=== PATIENT | female | born 1995 | race Caucasian/White ===

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

== ENCOUNTER 2018-10-24 02:13 | Outpatient (CLI) | payer MEDICAID ==
[2018-10-24 03:00] LABS: APPEARANCE,URINE CLOUDY; BILIRUBIN,URINE NEGATIVE (NEGATIVE); COLOR,URINE YELLOW; GLUCOSE, URINE NEGATIVE (NEGATIVE); KETONES,URINE NEGATIVE (NEGATIVE); LEUKOCYTE ESTERASE,URINE LARGE (NEGATIVE); NITRITE,URINE NEGATIVE (NEGATIVE); PROTEIN,URINE NEGATIVE (NEGATIVE); URINE SPECIFIC GRAVITY 1.019
[2018-10-24 03:26] LABS: URINE AMPHETAMINES SCREEN NEGATIVE; URINE BARBITURATES SCREEN NEGATIVE; URINE BENZODIAZEPINES SCREEN NEGATIVE; URINE COCAINE SCREEN NEGATIVE; URINE MARIJUANA (THC) SCREEN NEGATIVE; URINE METHADONE SCREEN NEGATIVE; URINE PHENCYCLIDINE SCREEN NEGATIVE
--- NOTE | 2018-10-24 05:17 | RADIOLOGY REPORT (SQ) ---
EXAM DESCRIPTION: US LIMITED COMPLETED DATE/TME: 10/24/2018 00:00 CLINICAL HISTORY: 23 years Female, Transvaginal cervical length 29w5d Comparison: None. TECHNIQUE/LIMITATION: Targeted OB sonogram for requested parameters only. FINDINGS: Single IUP Cardiac activity: 152-bpm. IGNACIO: 11.8-cm Placenta: Posterior.. No demonstrated abruption or previa. Presentation: Vertex. Cervical length: 3.5-cm. Closed appearance. IMPRESSION: Targeted OB sonogram for requested parameters
[2018-10-24 05:41] LABS: BACTERIA (WET MOUNT) 3+ BACTERIA SEEN; EPITHELIALS (WET MOUNT) 3+ EPITHELIALS SEEN; RBCS (WET MOUNT) FEW RBCS SEEN; T.VAGINALIS (WET MOUNT) TRICHOMONAS SEEN; WBCS (WET MOUNT) 2+ WBCS SEEN; YEAST (WET MOUNT) NO YEAST SEEN
[2018-10-24] MEDS ORDERED: METRONIDAZOLE 500 MG TABLET PO ONE (06:31)
[2018-10-24] MEDS ORDERED: METRONIDAZOLE 500 MG TABLET ONE (06:32)
[2018-10-24 07:12] LABS: CHLAM PCR NOT DETECTED (NOT DETECT)
== END 2018-10-24 07:33 | disposition home or self-care (01) ==
LOC: LC 02:13
PROVIDERS: ATTEND Student in an Organized Health Care Education/Training Program
PROC: 4A1HXCZ Monitoring of Products of Conception, Cardiac Rate, External Approach (ICD-10-PCS; principal; 2018-10-24)
DX: O23.593 Infection of other part of genital tract in pregnancy, third trimester (principal); B96.89 Other specified bacterial agents as the cause of diseases classified elsewhere; Z3A.29 29 weeks gestation of pregnancy
CPT/HCPCS: 59899; 76815; 87210; 81001; 80307; 87491; 87591; J3490

== ENCOUNTER 2018-11-02 10:47 | Outpatient (CLI) | payer MEDICAID ==
[2018-11-02 11:35] LABS: APPEARANCE,URINE CLEAR; BILIRUBIN,URINE NEGATIVE (NEGATIVE); COLOR,URINE YELLOW; GLUCOSE, URINE NEGATIVE (NEGATIVE); KETONES,URINE TRACE mg/dL (NEGATIVE); LEUKOCYTE ESTERASE,URINE SMALL (NEGATIVE); NITRITE,URINE NEGATIVE (NEGATIVE); PROTEIN,URINE NEGATIVE (NEGATIVE); URINE SPECIFIC GRAVITY 1.009; UROBILINOGEN,URINE NEGATIVE mg/dL (<2.0)
[2018-11-02 11:53] LABS: URINE AMPHETAMINES SCREEN NEGATIVE; URINE BARBITURATES SCREEN NEGATIVE; URINE BENZODIAZEPINES SCREEN NEGATIVE; URINE COCAINE SCREEN NEGATIVE; URINE MARIJUANA (THC) SCREEN NEGATIVE; URINE METHADONE SCREEN NEGATIVE; URINE PHENCYCLIDINE SCREEN NEGATIVE
[2018-11-02 12:32] LABS: BACTERIA (WET MOUNT) 4+ BACTERIA SEEN; EPITHELIALS (WET MOUNT) 4+ EPITHELIALS SEEN; T.VAGINALIS (WET MOUNT) NO TRICHOMONAS SEEN; WBCS (WET MOUNT) 1+ WBCS SEEN; YEAST (WET MOUNT) NO YEAST SEEN
--- NOTE | 2018-11-02 13:48 | RADIOLOGY REPORT (SQ) ---
EXAM DESCRIPTION: U/S OB LIMITED COMPLETED DATE/TIME: 11/02/2018 1:18 pm REASON FOR STUDY: cervical length, position, fluid, cramping 31wks COMPARISON: None. TECHNIQUE: Limited transabdominal grayscale ultrasound for evaluation of specific requested obstetri dariel parameters. LIMITATIONS: None. FINDINGS: CERVICAL LENGTH: 3.9 cm Closed. IGNACIO: 15.8 cm. FHR: 145 beats per minute. PRESENTATION: Vertex. PLACENTA: Posterior. No evidence of placenta previa or abruption. ANATOMY: Not assessed OTHER: No other findings. IMPRESSION: LIMITED OBSTETRICAL ULTRASOUND WITH MEASURED PARAMETERS DELINEATED ABOVE. Trimester of : Third trimester - 28 weeks to delivery. TECHNICAL DOCUMENTATION: JOB ID: [id number] [employer]- All Rights Reserved Reading location - IP/workstation name: [email or web address]
[2018-11-02 13:56] LABS: CHLAM PCR NOT DETECTED (NOT DETECT)
== END 2018-11-02 14:14 | disposition home or self-care (01) ==
LOC: LC 10:47
PROVIDERS: ATTEND Student in an Organized Health Care Education/Training Program
DX: O47.03 False labor before 37 completed weeks of gestation, third trimester (principal); Z3A.30 30 weeks gestation of pregnancy
CPT/HCPCS: 76815; 80307; 81001; 87210; 87491; 87591

== ENCOUNTER 2018-12-13 11:37 | Outpatient (CLI) | payer BC, MEDICAID ==
[2018-12-13 12:30] LABS: APPEARANCE,URINE CLEAR; BILIRUBIN,URINE NEGATIVE (NEGATIVE); COLOR,URINE STRAW; GLUCOSE, URINE NEGATIVE (NEGATIVE); KETONES,URINE NEGATIVE (NEGATIVE); LEUKOCYTE ESTERASE,URINE LARGE (NEGATIVE); NITRITE,URINE NEGATIVE (NEGATIVE); PROTEIN,URINE NEGATIVE (NEGATIVE); URINE SPECIFIC GRAVITY 1.002; UROBILINOGEN,URINE NEGATIVE mg/dL (<2.0)
[2018-12-13 13:10] LABS: URINE BARBITURATES SCREEN NEGATIVE; URINE BENZODIAZEPINES SCREEN NEGATIVE; URINE COCAINE SCREEN NEGATIVE; URINE MARIJUANA (THC) SCREEN NEGATIVE; URINE METHADONE SCREEN NEGATIVE
--- NOTE | 2018-12-13 13:14 | Non Stress Test Report ---
Non Stress Test Datetime Report Generated by CPN: 12/13/2018 13:13 DEMOGRAPHIC EGA NST: 36.6 INDICATION Indication for Study: Other - Please document "Reason for NST Other" in box below. Indication for Study (NST) Other: Abdominal pain MONITORING Monitor Explained: Monitor Explained; Test Explained; Patient Verbalized Understanding Time on Monitor: 12/13/2018 11:58 Time off Monitor: 12/13/2018 13:00 NST Duration: 62 NST INTERVENTIONS NST Interventions: None Physician Notified NST: A Garcia CNM BABY A: [id number] BABY A Movement : Present Contraction Frequency : none FHR Baseline : 150 Accelerations : 15X15 Decelerations : None Variability : Moderate 6-25bpm NST Review: Meets Criteria for Reactive NST NST Review and Verified By : Juan Miguel ChavezStilwell RN NST Results: Reactive NST COMMENTS NST Comments: CNM on unit reviewing FHT strip NST REPORT Report Trigger: Send Report
[2018-12-13 13:15] LABS: BACTERIA (WET MOUNT) 4+ BACTERIA SEEN; EPITHELIALS (WET MOUNT) 4+ EPITHELIALS SEEN; RBCS (WET MOUNT) 1+ RBCS SEEN; T.VAGINALIS (WET MOUNT) NO TRICHOMONAS SEEN; WBCS (WET MOUNT) 3+ WBCS SEEN; YEAST (WET MOUNT) NO YEAST SEEN
[2018-12-13 13:36] LABS: URINE AMPHETAMINES SCREEN NEGATIVE; URINE PHENCYCLIDINE SCREEN NEGATIVE
[2018-12-13 14:23] LABS: CHLAM PCR NOT DETECTED (NOT DETECT)
== END 2018-12-13 13:16 | disposition home or self-care (01) ==
LOC: LC 11:37
PROVIDERS: ATTEND Obstetrics & Gynecology
PROC: 4A1HXCZ Monitoring of Products of Conception, Cardiac Rate, External Approach (ICD-10-PCS; principal; 2018-12-13)
DX: O26.893 Other specified pregnancy related conditions, third trimester (principal); R10.9 Unspecified abdominal pain; Z3A.36 36 weeks gestation of pregnancy
CPT/HCPCS: 59025; 80307; 81005; 87210; 87491; 87591

== ENCOUNTER 2018-12-15 11:24 | Outpatient (CLI) | payer BC, MEDICAID ==
--- NOTE | 2018-12-15 13:14 | Non Stress Test Report ---
Non Stress Test Datetime Report Generated by CPN: 12/15/2018 13:14 DEMOGRAPHIC EGA NST: 37.1 INDICATION Indication for Study: Ordered by Provider MONITORING Time on Monitor: 12/15/2018 11:34 Time off Monitor: 12/15/2018 12:40 NST Duration: 66 NST INTERVENTIONS NST Interventions: PO Hydration; Reposition Patient Physician Notified NST: Dr Parks BABY A: [id number] BABY A Movement : Present Contraction Frequency : 0 FHR Baseline : 140 Accelerations : 15X15 Decelerations : None Variability : Moderate 6-25bpm NST Review: Meets Criteria for Reactive NST NST Review and Verified By : Yanet Camp RNC NST Results: Reactive NST REPORT Report Trigger: Send Report
== END 2018-12-15 12:50 | disposition home or self-care (01) ==
LOC: LC 11:24
PROVIDERS: ATTEND Student in an Organized Health Care Education/Training Program
PROC: 4A1HXCZ Monitoring of Products of Conception, Cardiac Rate, External Approach (ICD-10-PCS; principal; 2018-12-15)
DX: Z34.03 Encounter for supervision of normal first pregnancy, third trimester (principal)
CPT/HCPCS: 59025

== ENCOUNTER 2019-01-02 14:27 | Inpatient (IN) | payer BC, MEDICAID ==
[2019-01-02] MEDS ORDERED: OXYTOCIN/NORMAL SALINE 20 UNIT/1,000 ML RTUINJ ONE (14:30)
[2019-01-02] MEDS ORDERED: LIDOCAINE 1% INJ-PF (10 MG/ML) 30 ML SDV ONE (14:30)
[2019-01-02] MEDS ORDERED: MISOPROSTOL 0.2 MG TABLET ONE (14:30)
[2019-01-02] MEDS ORDERED: OXYTOCIN 10 UNIT/ML VIAL ONE (14:30)
[2019-01-02] MEDS ORDERED: RINGERS SOLUTION,LACTATED 1,000 ML IV ONE (15:21)
[2019-01-02] MEDS ORDERED: PENICILLIN G POTASSIUM 5,000,000 UNIT in DEXTROSE 5%-WATER 100 ML IV ONE (15:21)
[2019-01-02] MEDS ORDERED: RINGERS SOLUTION,LACTATED 1,000 ML IV PRN (15:21)
[2019-01-02 15:23] LABS: ABSOLUTE EOSINOPHILS # (AUTO) 0.1 10^3/uL (0.0-0.6); ABSOLUTE LYMPHOCYTES (AUTO) 2.1 10^3/uL (0.5-4.7); ABSOLUTE MONOCYTES (AUTO) 0.7 10^3/uL (0.1-1.4); ABSOLUTE NEUT (AUTO) 8.7 10^3/uL (1.7-8.2); BASOPHILS % (AUTO) 0.2 % (0-2); EOSINOPHILS % (AUTO) 0.5 % (0-6); HEMATOCRIT 30.9 % (36.0-47.0); LYMPHOCYTES % (AUTO) 18.2 % (13-45); MEAN CORPUSCULAR HEMOGLOBIN 24.3 pg (27.0-33.4); MEAN CORPUSCULAR HGB CONC 32.4 g/dL (32.0-36.0); MEAN CORPUSCULAR VOLUME 75 fl (80-97); PLATELET COUNT 250 10^3/uL (150-450); RED BLOOD COUNT 4.13 10^6/uL (3.72-5.28); RED CELL DISTRIBUTION WIDTH 16.2 % (11.5-14.0); SEGMENTED NEUTROPHILS % (AUTO) 75.1 % (42-78); TOTAL CELLS COUNTED % (AUTO) 100 %; WHITE BLOOD COUNT 11.6 10^3/uL (4.0-10.5)
[2019-01-02] MEDS ORDERED: OXYTOCIN/NORMAL SALINE 20 UNIT/1,000 ML RTUINJ IV PRN (15:40)
--- NOTE | 2019-01-02 16:37 | Admission Physical ---
Datetime Report Generated by CPN: 01/02/2019 16:37 CURRENT ADMISSION Chief Complaint: Other Chief Complaint Other: gross rupture of membranes-moderate meconium at 1355 Indication for Induction: Not Applicable Indication for Induction- Other: may need augmentation Admit Impression : Term, Intrauterine Admit Impression- Other: early labor Admit Plan: Admit to Unit; Initiate Labor Protocol ALLERGIES Medication Allergies: No Medication Allergies: No Known Allergies (01/02/2019) Latex: Latex Allergies Food Allergies: None Environmental Allergies: Yes OBSTETRICAL HISTORY EDC: 01/04/2019 00:00 : 1 Para: 0 Term: 0 : 0 SAB: 0 IAB: 0 Ectopic: 0 Livin Cesareans: 0 VBACs: 0 Multiple Births: 0 Gestational Diabetes: Yes Rh Sensitization: No Incompetent Cervix: Yes ANDRE: No Infertility: No ART Treatment: No Uterine Anomaly: No IUGR: No Hx Previous C/S: No Macrosomia: No Hx Loss/Stillborn: No PIH: No Hx : No Placenta Previa/Abruption: No Depression/PP Depression: No PTL/PROM: No Post Hemorrhage: No Current Procedures: Ultrasound; NST Obstetrical History Comments: G1 - short cervix, GDM- glyburide SEE RECORDS Alcohol: No Marijuana : No Cocaine: No Other Illicit Drugs: No Cigarettes: Light Tobacco Smoker. 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 Heart Disease: No Hosp/Surgery: Yes Autoimmune Disorder: No Anesthetic Complications: No Kidney Disease: No Abnormal Pap Smear: No Neuro/Epilepsy: No Psychiatric Disorders: Yes Other Medical Diseases: No Hepatitis/Liver Disease: No Significant Family History: No Varicosities/Phlebitis: No Trauma/Violence : No Thyroid Dysfunction: Yes Medical History Comments: Anxiety, Asthma, obesity, GDM- glyburide, Hyperthyroid- levothyroxide Addenectomy and wisdome tooth removal- denies complications with anesthesia INFECTIOUS HISTORY Gonorrhea: No Genital Herpes: No Chlamydia: Yes Tuberculosis: No Syphilis: No Hepatitis: No HIV/AIDS Exposure: No Rash or Viral Illness: No HPV: No Infectious History Comments: + Chlamydia, Negative JOVANI, + Trich JOVANI- 9/11, + E. Coli PHYSICAL EXAM General: Normal HEENT: Normal Neurologic: Normal Thyroid: Deferred Heart: Normal Lungs: Normal Breast: Deferred Back: Normal Abdomen: Normal Genitourinary Exam: Normal Extremities: Normal DTRs: Normal Pelvic Type: Not Done Vital Signs: Reviewed VAGINAL EXAM Dilatation: 1 Effacement: c Station: -1 Contraction Comments: q2-4 mins MEMBRANES Pooling: Positive Membranes: Ruptured Amniotic Fluid Color: Meconium, Light FETUS A EGA: 39.5 Monitoring: External US FHR- Baseline: 140 Variability: Moderate 6-25bpm Accelerations: 15X15 Decelerations: None Estimated Weight (gm): 3300 Presentation: Vertex Admit Comment: at 39w5d with gross rupture of membranes today. hx asthma-no inhaler use in months, obesity with GDM A2, hypothyroid, trich pos with neg JOVANI, pos chlamydia wiht neg JOVANI in pregncancy. P: penicillin for GBS prophylaxis, pitocin augmentation if needed, anticipate PLANS FOR LABOR AND DELIVERY Labor and Delivery: None Pain Management: Epidural Feeding Preference: Breast Benefit of Breast Feed Discussed: Yes Circumcision: N/A INFORMED CONSENT Assignment: Giana Thapa MD Signature: with User ID: [email or web address] : with User ID: [email or web address]
[2019-01-02] MEDS ORDERED: PROMETHAZINE HCL INJ 25 MG/1 ML VIAL IV ONE (17:01)
[2019-01-02] MEDS ORDERED: NALBUPHINE HCL INJ 10 MG/1 ML AMPULE INJ ONE (17:01)
[2019-01-02] MEDS ORDERED: PROMETHAZINE HCL INJ 25 MG/1 ML VIAL ONE (17:09)
[2019-01-02] MEDS ORDERED: PENICILLIN G-K 5 MILLION UNIT VIAL ONE ×2 (19:12→23:08)
[2019-01-02] MEDS: PENICILLIN G POTASSIUM 2,500,000 UNIT in DEXTROSE 5%-WATER 50 ML IV SCH ×2 (19:24→23:15)
[2019-01-02] MEDS ORDERED: FENTANYL/BUPIVACAINE/NS/PF 300 MCG/150 ML RTUINJ EPI ONE (21:19)
[2019-01-02] MEDS ORDERED: EPHEDRINE SULFATE INJ 50 MG/1 ML AMPULE ONE (21:19)
[2019-01-02] MEDS ORDERED: BUPIVACAINE HCL 0.25 % INJ/PF (2.5 MG/1 ML) 30 ML VIAL ONE (21:19)
[2019-01-02] MEDS ORDERED: LIDOCAINE 2% INJ-PF (20 MG/ML) 10 ML AMPUL ONE (21:40)
[2019-01-03] MEDS ORDERED: LIDOCAINE 1% INJ-PF (10 MG/ML) 30 ML SDV ONE (00:16)
[2019-01-03] MEDS ORDERED: LIDOCAINE 2% INJ-PF (20 MG/ML) 10 ML AMPUL ONE (00:36)
[2019-01-03] MEDS ORDERED: HYDROXYZINE PAMOATE 50 MG CAPSULE PO ONE (01:15)
[2019-01-03] MEDS ORDERED: MORPHINE SULFATE 10 MG/ML INJ IV ONE (01:15)
[2019-01-03] MEDS ORDERED: MORPHINE SULFATE 10 MG/ML INJ ONE ×2 (01:15→16:31)
[2019-01-03] MEDS ORDERED: HYDROXYZINE PAMOATE 50 MG CAPSULE ONE (01:15)
[2019-01-03] MEDS ORDERED: PENICILLIN G-K 5 MILLION UNIT VIAL ONE ×3 (03:09→11:17)
[2019-01-03] MEDS: PENICILLIN G POTASSIUM 2,500,000 UNIT in DEXTROSE 5%-WATER 50 ML IV SCH ×4 (03:15→20:59)
[2019-01-03] MEDS: LEVOTHYROXINE SODIUM 0.1 MG TABLET PO SCH (07:12)
[2019-01-03] MEDS ORDERED: DIPHENHYDRAMINE HCL 50 MG/ML VIAL ONE (07:52)
[2019-01-03] MEDS ORDERED: DIPHENHYDRAMINE HCL 50 MG/ML VIAL IV ONE (08:30)
[2019-01-03] MEDS ORDERED: PHENYLEPHRINE HCL INJ/PF 10 MG/1 ML SDV ONE (08:39)
[2019-01-03] MEDS ORDERED: EPHEDRINE SULFATE INJ 50 MG/1 ML AMPULE ONE ×2 (08:39→14:35)
[2019-01-03] MEDS ORDERED: FENTANYL/BUPIVACAINE/NS/PF 0 MCG/0 ML RTUINJ EPI ONE (08:39)
[2019-01-03] MEDS ORDERED: FENTANYL CITRATE INJ/PF 100 MCG/2 ML AMPUL ONE ×2 (08:39→14:36)
[2019-01-03] MEDS ORDERED: BUPIVACAINE HCL 0.25 % INJ/PF (2.5 MG/1 ML) 30 ML VIAL ONE (08:40)
[2019-01-03] MEDS ORDERED: LIDOCAINE 1.5%/EPINEPHRINE INJ 5 ML AMP ONE (09:05)
[2019-01-03] MEDS ORDERED: FENTANYL/BUPIVACAINE/NS/PF 300 MCG/150 ML RTUINJ EPI ONE (09:51)
[2019-01-03] MEDS ORDERED: CEFAZOLIN INJ 1 GM VIAL ONE ×2 (14:09→14:18)
[2019-01-03] MEDS ORDERED: CITRIC ACID/SODIUM CITRATE ORAL SOLN 15 ML UDCUP ONE (14:10)
[2019-01-03] MEDS ORDERED: PROPOFOL INJ 200 MG/20 ML VIAL IV ONE (14:35)
[2019-01-03] MEDS ORDERED: MIDAZOLAM 2 MG/2 ML INJ ONE (14:36)
[2019-01-03] MEDS ORDERED: CHLOROPROCAINE HCL INJ/PF 3% (30 MG/1 ML) 20 ML VIAL ONE (14:41)
[2019-01-03] MEDS ORDERED: PROMETHAZINE HCL INJ 25 MG/1 ML VIAL IV PRN (15:12)
[2019-01-03] MEDS ORDERED: OXYTOCIN/NORMAL SALINE 20 UNIT/1,000 ML RTUINJ IV PRN (15:12)
[2019-01-03] MEDS ORDERED: MEASLES,MUMPS&RUBELLA VACC/PF 0.5 ML VIAL SUBCUT PRN (15:12)
[2019-01-03] MEDS ORDERED: ACETAMINOPHEN 325 MG TABLET PO PRN (15:12)
[2019-01-03] MEDS ORDERED: ACETAMINOPHEN 1,000 MG/100 ML RTUPB IV PRN (15:12)
[2019-01-03] MEDS ORDERED: DIPH/PERTUSS(ACELL)/TETANUS VAC/PF 0.5 ML SYR (>=10YO) IM PRN (15:12)
[2019-01-03] MEDS ORDERED: SIMETHICONE 80 MG TAB.CHEW PO PRN (15:12)
--- NOTE | 2019-01-03 15:16 | Operative Report ---
Operative Report DATE OF SURGERY: 01/03/19 PREOPERATIVE DIAGNOSIS: IUP at term rupture membranes failure to progre ss POSTOPERATIVE DIAGNOSIS: Same OPERATION: Primary low transverse section SURGEON: TANNER KHAN ANESTHESIA: Epidural TISSUE REMOVED OR ALTERED: Placenta COMPLICATIONS: None PROCEDURE: The patient was taken to the operating room where spinal anesthesia was obtained and found to be adequate. She was then prepped and draped in the normal sterile fashion and placed in the dorsal supine position with a leftward tilt. A Pfannenstiel skin incision was then made and carried through to the underlying layers of the fascia with the scalpel. The fascia was incised in the midline and the incision extended laterally with the Henriquez scissors. The superior aspect of the fascial incision was then grasped with Constance clamps elevated and the underlying rectus muscles dissected off bluntly. Attention was then turned to the inferior aspect of the fascial incision which in a similar fashion was grasped, tented up with Revin clamps, and the rectus muscles dissected off bluntly. The rectus muscles were then in the midline and the peritoneum at the amount identified and entered bluntly. The peritoneal incision was then extended superiorly and inferiorly with good visualization of the bladder. [The bladder blade was inserted and the vesicouterine peritoneum identified grasped with Uzbek pickups and entered sharply with the Metzenbaum scissors. His incision was then extended laterally with the Metzenbaum scissors and a bladder flap created digitally. The bladder blade was then reinserted and the lower uterine segment incised in a transverse fashion with the scalpel. The uterine incision was then extended bluntly. The bladder blade was removed and the 's head was delivered from cephalic presentation atraumatically. The nose and mouth were suctioned and the cord doubly clamped and cut. And the was handed off to waiting pediatricians. The placenta was then delivered manully and the uterus exteriorized and cleared of all clots and debris. The uterine incision was then repaired with 1-0 Vicryl in a running locked fashion. A second layer of the same suture was used to obtain hemostasis via imbrication of the initial layer. The uterus was returned to the patient's abdomen. The gutters were cleared of all clots and debris. All operative sites were noted to be hemostatic. The fascia was reapproximated with 0 Vicryl in a running fashion from each lateral edge to the midline. The patient tolerated the procedure well. Sponge lap needle and instrument counts are correct -2. 2 g of Ancef were given prior to skin incision. The patient was taken to the recovery area awake and in stable condition.
[2019-01-03] MEDS ORDERED: OXYTOCIN/NORMAL SALINE 20 UNIT/1,000 ML RTUINJ ONE (15:34)
--- NOTE | 2019-01-03 18:29 | Delivery Summary ---
Del Sum A-C Datetime Report Generated by CPN: 01/03/2019 18:29 DELIVERY PERSONNEL DELIVERY PERSONNEL: [id number] Delivery Doctor:: Tin Owen MD Anesthesiologist:: Dr. Wynn SCALPING MACHINE OPERATOR:: Galliano Branch, SCALPING MACHINE OPERATOR Labor and Delivery Nurse:: Nkechi Rader RNalmond paste mixer Nurse:: Katina Mata RN Sausage Canner:: Nkechi Rader RN Neonatal Nurse Practitioner:: VIKY Cardoza Nursery Nurse:: Cata Nair RN Director Of Sustainability/TABLE ATTENDANT: Bibi Fernandes CST Director Of Sustainability/TABLE ATTENDANT: [facility] Additional Personnel: : Berna Cuenca RN MATERNAL INFORMATION Delivery Anesthesia: Epidural Medications After Delivery: Pitocin Bolus-Please Comment Meds After Delivery Comment: pitocin 20 units Delivery QBL: 1104 Maternal Complications: Premature Rupture of Membranes LABOR SUMMARY EDC: 01/04/2019 00:00 No. Babies in Womb: 1 Attempted: No Labor Anesthesia: Epidural LABOR INFORMATION Reason for Induction: Not Applicable Onset of Labor: 01/02/2019 13:55 Oxytocin: Augmentation Group B Beta Strep: Positive Antibiotics # of Doses: 6 Antibiotics Time of Last Dose: 1420 Name of Antibiotic Given: Penicillin Steroids Given: None Reason Steroids Not Administered: Not Applicable MEMBRANES Membranes Rupture Method: Spontaneous Rupture of Membranes: 01/02/2019 13:55 Length of Rupture (hr): 24.87 Amniotic Fluid Color: Moderate Meconium Amniotic Fluid Amount: Small Amniotic Fluid Odor: Normal STAGES OF LABOR Stage 3 hr: 0 Stage 3 min: 2 Total Time in Labor hr: 24 Total Time in Labor min: 54 VAGINAL DELIVERY Episiotomy: None Laceration #1: None Laceration Extension #1: N/A Laceration Repair: Not Applicable Sponge Count Correct: N/A Sharps Count Correct: N/A CSECTION DELIVERY Primary Indication: Failure to progress CSection Urgency: Non-Scheduled CSection Incidence: Primary Labor: Labor Elective: Nonelective CSection Incision: Lower Uterine Transverse BABY A INFORMATION Infant Delivery Date/Time: 01/03/2019 14:47 Method of Delivery: Born in Route : No : N/A Forceps: N/A Vacuum Extraction: N/A Shoulder Dystocia : No PRESENTATION/POSITION BABY A Presentation: Cephalic Cephalic Presentation: Vertex Breech Presentation: N/A PLACENTA INFORMATION BABY A Placenta Delivery Time : 01/03/2019 14:49 Placenta Method of Delivery: Manual Removal Placenta Status: Delivered SCORES BABY A Heart Rate 1 min: >100 bpm Resp Effort 1 min: Good Cry Reflex Irritability 1 min: Cough or Sneeze or Pulls Away Muscle Tone 1 min: Active Motion Color 1 min: Body [place], Extremities Blue Resuscitation Effort 1 min: Tactile Stimulation SCORE 1 MIN: 9 Heart Rate 5 min: >100 bpm Resp Effort 5 min: Good Cry Reflex Irritability 5 min: Cough or Sneeze or Pulls Away Muscle Tone 5 min: Active Motion Color 5 min: Body [place], Extremities Blue Resuscitation Effort 5 min: Tactile Stimulation SCORE 5 MIN: 9 INFORMATION BABY A Gestational Age at Delivery: 39.6 Gestational Status: Full Term- 39- 40.6 Weeks Outcome : Liveborn Infant Condition : Stable Infant Sex: Female IDENTIFICATION BABY A Verification Date/Time: 01/03/2019 15:50 ID Band Number: [id number] Mother's Name Verified: Yes RN Verifying Infant: C. Brooks, RN M. Sasala, RN WEIGHT/LENGTH BABY A Infant Birthweight (gm): 3530 Weight (lb): 7 Infant Weight (oz): 13 Length (in): 20.50 Length (cm): 52.07 CORD INFORMATION BABY A No. Cord Vessels: 3 Nuchal Cord : N/A Cord Blood Taken: Yes-For Eval (Mom's Blood Type - or O+) Suction: Mouth; Nose ASSESSMENT BABY A Complications: Decreased Variability; Multiple Late Decels; Meconium Infant Respirations: Appears Normal Skin to Skin: No Admissions Representative/ALS Called : No Care By: K Crimm RN Transferred To: Nursery BABY B INFORMATION : N/A SIGNATURES Signature: with User ID: [email or web address] : I was personally available for consultation and serving as supervising physician for the MLP.
[2019-01-03] MEDS: DOCUSATE SODIUM 100 MG CAPSULE PO SCH (19:10)
[2019-01-03] MEDS: OXYCODONE-ACETAMINOPHEN 5-325 MG TABLET PO PRN (19:10)
[2019-01-03] MEDS: KETOROLAC TROMETHAMINE INJ/PF 30 MG/1 ML SDV IV SCH (22:12)
[2019-01-04] MEDS: OXYCODONE-ACETAMINOPHEN 5-325 MG TABLET PO PRN ×3 (01:55→16:44)
[2019-01-04] MEDS: LEVOTHYROXINE SODIUM 0.1 MG TABLET PO SCH (06:30)
[2019-01-04] MEDS: KETOROLAC TROMETHAMINE INJ/PF 30 MG/1 ML SDV IV SCH ×2 (06:30→14:46)
[2019-01-04 08:23] LABS: HEMATOCRIT 24.7 % (36.0-47.0); HEMOGLOBIN 8.1 g/dL (12.0-15.5); MEAN CORPUSCULAR HEMOGLOBIN 24.6 pg (27.0-33.4); MEAN CORPUSCULAR HGB CONC 32.8 g/dL (32.0-36.0); MEAN CORPUSCULAR VOLUME 75 fl (80-97); PLATELET COUNT 189 10^3/uL (150-450); RED BLOOD COUNT 3.29 10^6/uL (3.72-5.28); RED CELL DISTRIBUTION WIDTH 15.9 % (11.5-14.0); WHITE BLOOD COUNT 16.8 10^3/uL (4.0-10.5)
[2019-01-04] MEDS: PRENATAL VITAMIN W DHA CAPSULE PO SCH (09:29)
[2019-01-04] MEDS: DOCUSATE SODIUM 100 MG CAPSULE PO SCH ×2 (09:29→17:29)
--- NOTE | 2019-01-04 12:11 | PDOC PROGRESS REPORT ---
Subjective-OB Progress Note for:: 01/04/19 Subjective: 23yo G1 now P1 s/p primary ppd1. Ambulating, voiding and without difficulty. Pain well controlled with medication, no concerns at this time. Physical Exam (OB) Vital Signs: Temp Pulse Resp BP Pulse Ox 98.4 F 103 H 18 117/65 100 01/04/19 08:00 01/04/19 08:00 01/04/19 08:00 01/04/19 08:00 01/04/19 08:00 Intake & Output 01/03/19 01/04/19 01/05/19 06:59 06:59 06:59 Intake Total 500 Output Total 3800 1400 Balance -3300 -1400 Weight 120.3 kg - General General Appearance: Appears well In distress: None - PIH/Pre-Eclampsia DTR's: 2 + Clonus: Negative Headache: Absent Epigastric Pain: No Visual Changes: No - Dressing Removed: Yes Incision: Dressing Closure Type: pressure - Lochia Lochia Amount: Small 10-25 ml Lochia Color: Rubra/Red - Abdomen Description: Soft Hernia Present: No Fundal Description: Firm, Midline Fundal Height: u/u - u/2 - Respiratory Respiratory Status: No respiratory distress - Extremities Upper extremity: Normal inspection Lower extremities: Normal inspection - Neurological Cognition: Normal Orientation: AAOx4 - Psychological Associated symptoms: Normal affect, Normal mood Objective-Diagnostic Laboratory: 01/04/19 06:38 01/04/19 06:38 WBC 16.8 H RBC 3.29 L Hgb 8.1 L Hct 24.7 L MCV 75 L MCH 24.6 L MCHC 32.8 RDW 15.9 H Plt Count 189 Assessment and Plan(PN) - Assessment and Plan (1) S/P primary low transverse Is this a current diagnosis for this admission?: Yes Plan: routine pp care (2) Anemia affecting in third trimester Is this a current diagnosis for this admission?: Yes Plan: increase dietary iron and FeSO4 BID (3) Acute blood loss anemia Is this a current diagnosis for this admission?: Yes Plan: increase dietary iron and FeSO4 BID (4) Gestational diabetes mellitus (GDM) Qualifiers: Gestational diabetes mellitus control: diet-controlled Trimester: unspecified trimester Qualified Code(s): O24.410 - Gestational diabetes mellitus in , diet controlled Is this a current diagnosis for this admission?: Yes Plan: delivered (5) Meconium in amniotic fluid Is this a current diagnosis for this admission?: Yes Plan: delivered (6) Group B Streptococcus carrier, antepartum Is this a current diagnosis for this admission?: Yes Plan: delivered (7) Asthma Qualifiers: Asthma severity: unspecified severity Asthma persistence: unspecified Asthma complication type: unspecified Qualified Code(s): J45.909 - Unspecified asthma, uncomplicated Is this a current diagnosis for this admission?: Yes Plan: continue to monitor (8) Chlamydia infection complicating Qualifiers: Trimester: unspecified trimester Qualified Code(s): O98.819 - Other m aternal infectious and parasitic diseases complicating , unspecified trimester; A74.9 - Chlamydial infection, unspecified Is this a current diagnosis for this admission?: No Plan: negative JOVANI (9) Trichomonal vaginitis during Qualifiers: Trimester: unspecified trimester Qualified Code(s): O23.599 - Infection of other part of genital tract in , unspecified trimester; A59.01 - Trichomonal vulvovaginitis Is this a current diagnosis for this admission?: No Plan: negative JOVANI - Time Spent with Patient Time with patient: 15-25 minutes Medications reviewed and adjusted accordingly: Yes - Disposition Anticipated Discharge: Home Within: within 24 hours
[2019-01-04] MEDS: IBUPROFEN 800 MG TABLET PO SCH ×2 (14:49→20:21)
[2019-01-04] MEDS ORDERED: IBUPROFEN 800 MG TABLET PO SCH (18:00)
[2019-01-05] MEDS: IBUPROFEN 800 MG TABLET PO SCH ×2 (02:19→09:09)
[2019-01-05] MEDS: OXYCODONE-ACETAMINOPHEN 5-325 MG TABLET PO PRN ×2 (03:31→11:12)
[2019-01-05] MEDS: LEVOTHYROXINE SODIUM 0.1 MG TABLET PO SCH (05:27)
--- NOTE | 2019-01-05 08:57 | PDOC DISCHARGE SUMMARY ---
Impression - Admit/DC Date/PCP Admission Date/Primary Care Provider: 01/02/19 14:27 CARRIE BURTON MD Discharge Date: 01/05/19 - POD #2, pt doing well this morning, O+, Rubella Immune, - Discharge Diagnosis (1) Acute blood loss anemia Is this a current diagnosis for this admission?: Yes (2) Anemia affecting in third trimester Is this a current diagnosis for this admission?: Yes (3) Asthma Is this a current diagnosis for this admission?: Yes (4) Chlamydia infection complicating Is this a current diagnosis for this admission?: Yes (5) Gestational diabetes mellitus (GDM) Is this a current diagnosis for this admission?: Yes (6) Group B Streptococcus carrier, antepartum Is this a current diagnosis for this admission?: Yes (7) Meconium in amniotic fluid Is this a current diagnosis for this admission?: Yes (8) S/P primary low transverse Is this a current diagnosis for this admission?: Yes - Additional Information Resuscitation Status: Full Code Discharge Diet: As Tolerated, Regular Discharge Activity: Activity As Tolerated, No Driving, No Lifting Over 10 Pounds, Pelvic Rest Referrals: CARRIE BURTON MD [Primary Care Provider] - Prescriptions: Ibuprofen [Motrin 800 mg Tablet] 800 mg PO Q6A #60 tablet Oxycodone HCl/Acetaminophen [Percocet 5-325 mg Tablet] 1 tab PO Q4HP PRN #30 tablet PRN Reason: Pain Scale Of 4 Home Medications: Albuterol Sulfate [Ventolin 0.083% Neb 2.5 mg/3 mL Ampul] 2.5 mg IH PRN PRN 11/08/11 Ferrous Sulfate [Iron] 1 tab PO DAILY 10/20/18 Vitamin [-U Multiple Vitamin Capsule] 1 cap PO DAILY 10/20/18 Levothyroxine Sodium [Synthroid 0.1 mg Tablet] 1 tab PO DAILY 11/02/18 Ibuprofen [Motrin 800 mg Tablet] 800 mg PO Q6A #60 tablet 01/05/19 Oxycodone HCl/Acetaminophen [Percocet 5-325 mg Tablet] 1 tab PO Q4HP PRN #30 tablet 01/05/19 HPI Reason(s) for Admission: Other - SROM, with augmentation Procedures: NST, Ultrasound Intrapartum Procedure(s): : Low Cervical, Transverse Hospital Course Hospital Course: routine Results Laboratory Results: WBC 16.8 10^3/uL (4.0-10.5) H 01/04/19 06:38 RBC 3.29 10^6/uL (3.72-5.28) L 01/04/19 06:38 Hgb 8.1 g/dL (12.0-15.5) L 01/04/19 06:38 Hct 24.7 % (36.0-47.0) L 01/04/19 06:38 MCV 75 fl (80-97) L 01/04/19 06:38 MCH 24.6 pg (27.0-33.4) L 01/04/19 06:38 MCHC 32.8 g/dL (32.0-36.0) 01/04/19 06:38 RDW 15.9 % (11.5-14.0) H 01/04/19 06:38 Plt Count 189 10^3/uL (150-450) 01/04/19 06:38 Lymph % (Auto) 18.2 % (13-45) 01/02/19 14:50 [place] % (Auto) 6.0 % (3-13) 01/02/19 14:50 Eos % (Auto) 0.5 % (0-6) 01/02/19 14:50 Baso % (Auto) 0.2 % (0-2) 01/02/19 14:50 Absolute Neuts (auto) 8.7 10^3/uL (1.7-8.2) H 01/02/19 14:50 Absolute Lymphs (auto) 2.1 10^3/uL (0.5-4.7) 01/02/19 14:50 Absolute Monos (auto) 0.7 10^3/uL (0.1-1.4) 01/02/19 14:50 Absolute Eos (auto) 0.1 10^3/uL (0.0-0.6) 01/02/19 14:50 Absolute Basos (auto) 0.0 10^3/uL (0.0-0.2) 01/02/19 14:50 Seg Neutrophils % 75.1 % (42-78) 01/02/19 14:50 POC Glucose 117 mg/dL (70-110) H 01/03/19 10:02 RPR NONREACTIVE (NONREACTIVE) 01/02/19 14:50 Blood Type O POSITIVE 01/02/19 14:50 Antibody Screen NEGATIVE 01/02/19 14:50 Plan Health Concerns: iron rich foods, continue w/ iron supplementation, Hx GDM Plan of Treatment: d/c home, pt to f/u in one week for an incision check w/ [facility]
[2019-01-05] MEDS: PRENATAL VITAMIN W DHA CAPSULE PO SCH (09:09)
[2019-01-05] MEDS: DOCUSATE SODIUM 100 MG CAPSULE PO SCH (09:09)
[2019-01-05 10:17] VITALS: BP 128/70
== END 2019-01-05 13:55 | disposition home or self-care (01) | DRG 787 ==
LOC: LR 14:27 → 2S 01-03 18:01
PROVIDERS: ADMIT Obstetrics & Gynecology; ATTEND Obstetrics & Gynecology Gynecology
PROC: 10D00Z1 Extraction of Products of Conception, Low, Open Approach (ICD-10-PCS; principal; 2019-01-03)
DX: O42.92 Full-term premature rupture of membranes, unspecified as to length of time between rupture and onset of labor (principal); D62 Acute posthemorrhagic anemia; O77.0 Labor and delivery complicated by meconium in amniotic fluid; O62.2 Other uterine inertia; Z37.0 Single live birth; O24.425 Gestational diabetes mellitus in childbirth, controlled by oral hypoglycemic drugs; O76 Abnormality in fetal heart rate and rhythm complicating labor and delivery; O99.334 Smoking (tobacco) complicating childbirth; F17.210 Nicotine dependence, cigarettes, uncomplicated; O99.284 Endocrine, nutritional and metabolic diseases complicating childbirth; E05.90 Thyrotoxicosis, unspecified without thyrotoxic crisis or storm; J45.909 Unspecified asthma, uncomplicated; Z90.79 Acquired absence of other genital organ(s); O99.52 Diseases of the respiratory system complicating childbirth; O99.344 Other mental disorders complicating childbirth; F41.9 Anxiety disorder, unspecified; O99.214 Obesity complicating childbirth; E66.9 Obesity, unspecified; Z3A.39 39 weeks gestation of pregnancy; O99.02 Anemia complicating childbirth; O99.824 Streptococcus B carrier state complicating childbirth; Z86.19 Personal history of other infectious and parasitic diseases
CPT/HCPCS: 1961; 36415; 82962; 85025; 85027; 86592; 86850; 86900; 86901; 88307; 94760; 94799; J0690; J1200; J1885; J2250; J2270; J2300; J2370; J2400; J2540; J2550; J2590; J2704; J3010; J3490